=== PATIENT | male | born 1965 | race Caucasian/White ===

== ENCOUNTER 2018-11-21 00:46 | Inpatient (IN) ==
[2018-11-21] MEDS ORDERED: Acetaminophen 325 MG TABLET PO PRN (00:50)
[2018-11-21] MEDS ORDERED: MOM Conc 10 ML UD.LIQ PO PRN (00:50)
[2018-11-21] MEDS ORDERED: Mag Hydrox/Al Hydrox/Simeth 30 ML UDC PO PRN (00:50)
[2018-11-21] MEDS ORDERED: *HR* LORazepam 2 MG/ML VIAL IM PRN (00:50)
[2018-11-21] MEDS ORDERED: *HR* LORazepam 1 MG TABLET PO PRN (00:50)
[2018-11-21] MEDS ORDERED: Haloperidol Lactate 5 MG/ML VIAL IM PRN (00:50)
[2018-11-21] MEDS: traZODone 50 MG TABLET PO PRN (02:16)
[2018-11-22] MEDS: hydrOXYzine pamoate 25 MG CAPSULE PO PRN (21:23)
[2018-11-22] MEDS: traZODone 50 MG TABLET PO PRN (21:23)
[2018-11-23] MEDS: hydrOXYzine pamoate 25 MG CAPSULE PO PRN (20:51)
[2018-11-23] MEDS: traZODone 50 MG TABLET PO PRN (20:51)
[2018-11-24 12:03] VITALS: BP 110/72
== END 2018-11-24 12:50 | disposition home or self-care (01) | DRG 751 ==
LOC: SUATTDRO 00:46 → 1ANU 00:46
PROVIDERS: ADMIT Psychiatry & Neurology Forensic Psychiatry; ATTEND Psychiatry & Neurology Psychiatry